=== PATIENT | female | born 1965 | race Caucasian/White ===

== ENCOUNTER → 2016-09-05 | Outpatient (CLI) | payer BC ==
--- NOTE | 2016-09-05 16:39 | RAD ---
PROCEDURE MRI lumbar spine without contrast. HISTORY Low back pain and bilateral leg radiculopathy, left greater than right. TECHNIQUE Sagittal T1, sagittal T2, sagittal STIR, axial T1, and axial T2 sequences are provided. COMPARISON None. FINDINGS There is no malalignment. There is no marrow edema. There is no worrisome marrow lesion. 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 There is disc desiccation at L1-L2 and L4-L5. Conus medullaris is normal in signal intensity and in position. There is subcutaneous edema. The numbering system assumes 5 lumbar type vertebral bodies. Degenerative findings by individual level are as follows: L1-L2: There is a minimal disc bulge without canal or foraminal compromise. L2-L3, L3-L4: There is no canal or foraminal compromise. L4-L5: There is a diffuse disc bulge. There is facet hypertrophy, marked. There is either a spur or potentially synovial cyst with complicated fluid noted on the right. This measures 7 millimeters. There is moderate to severe canal stenosis. There is lateral recess narrowing. There is mild foraminal narrowing. L5-S1: Minimal disc bulge and facet hypertrophy are noted without canal or foraminal compromise. IMPRESSION Degenerative changes in the lumbar spine are greatest at L4-L5. Electronically signed by: Buck Prakash MD (September 05, 2016 16:38:16)
== END | disposition home or self-care (01) ==
LOC: MRI 15:14
PROVIDERS: ATTEND Anesthesiology Pain Medicine
DX: M47.896 Other spondylosis, lumbar region (principal)
CPT/HCPCS: 72148